=== PATIENT | female | born 1985 | race Two or more races ===

== ENCOUNTER 2017-01-15 16:31 | Emergency (ER) | payer OTHER ==
[2017-01-15] MEDS: IBUPROFEN 400 MG TABLET PO STA (17:28)
[2017-01-15] MEDS: LIDOCAINE PATCH 5% TOP STA (17:29)
[2017-01-15] MEDS ORDERED: LIDOCAINE PATCH 5% TOP ONE (17:31)
[2017-01-15] MEDS ORDERED: IBUPROFEN 400 MG TABLET PO ONE (17:31)
[2017-01-15 18:17] LABS: CREATININE 0.8 mg/dL (0.4-1.0); GFR - MDRD 83 (>89)
--- NOTE | 2017-01-15 18:31 | ED Physician Documentation ---
History of Present Illness - Stated complaint Stated Complaint: NECK PX - Chief complaint Chief Complaint: Back Pain - Additonal information Additional information: hx from pt 31 female travlled from [place] by care several weeks ago several weeeks of mild cough URI sx that started after thr trip now several days of right lateral neck and shoulder pain worse with moving arm but also worse with breathing and a little soa no specific injury recalled no leg pain or swelling denies preg non smoker Review of Systems Constitutional: denies: Fever, Chills Respiratory: reports: Dyspnea, Cough GI: denies: Abdominal Pain : denies: Now EGA Musculoskeletal: reports: Neck pain, Joint pain (R shoulder) Endocrine: denies: Easy bruising / bleeding Immunocompromised: denies: Immunocompromised PD PAST MEDICAL HISTORY - Past Medical History Past Medical History: Yes Respiratory: Asthma Endocrine/Autoimmune: Type 1 diabetes - Past Surgical History 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 - Present Medications Home Medications: Ambulatory Orders Medication Instructions Recorded Confirmed Cyclobenzaprine [Flexeril] 10 mg PO TID PRN #20 tablet 01/15/17 Escitalopram Oxalate [Lexapro] 5 mg PO DAILY 01/15/17 01/15/17 Ibuprofen [Motrin] 400 mg PO Q6H PRN #30 tablet 01/15/17 Insulin Aspart [Novolog Flexpen] See Protocol SUBQ DAILY 01/15/17 01/15/17 Insulin Glargine [Lantus Solostar] See Protocol SUBQ DAILY 01/15/17 01/15/17 Lidocaine Patch 5% [Lidoderm Patch] 1 each TOP DAILY PRN #10 patch 01/15/17 - Allergies Allergies/Adverse Reactions: Allergies Allergy/AdvReac Type Severity Reaction Status Date / Time No Known Drug Allergies Allergy Verified 01/15/17 16:39 - Social History Does the pt smoke?: No Smoking Status: Never smoker Does the pt drink ETOH?: Yes Does the pt have substance abuse?: No - Immunizations Immunizations are current?: Yes PD ED PE NORMAL - Vitals Vital signs reviewed: Yes - General General: Alert and oriented X 3 - HEENT HEENT: PERRL - Neck Neck: Supple, no meningeal sign, Other (no rash, no spinal pain, no swelling, some TTP R posterior soft tissue) - Cardiac Cardiac: RRR - Respiratory Respiratory: No respiratory distress, Clear bilaterally - Abdomen Abdomen: Soft, Non tender - Extremities Extremities: No edema, No calf tenderness / cord, Other (R shoulder s deformity , no pain with int ext rot, pain eith axt and ABD past 90, MSV intact, no rash) Results - Vitals Vitals: Vital Signs - 24 hr 01/15/17 01/15/17 16:55 17:13 Temperature 36.3 C L Heart Rate 98 Respiratory 18 Rate Blood Pressure 119/64 O2 Saturation 98 Oxygen O2 Source Room air - Labs Labs: Laboratory Tests 01/15/17 01/15/17 18:10 18:40 D-Dimer 226.7 Creatinine 0.8 Estimated GFR (MDRD) 83 L Serum HCG, Qual NEGATIVE - Rads (name of study) CXR Radiology: See rad report (no acute) PD MEDICAL DECISION MAKING - ED course ED course: could just be muscular - but no trauma - and somewhat pleuritic and pt had recent long car trip - will tx the pain but check CXR and a d dimer and perhaps CTPA if d dimer +, also got HCG and GFR if d dimer + saw pt 515, ordered labd 525, 635 ddimer still not running, alb not able to draw , so turned of to mid EMP Dr Davis will write dc instructions in hope d dimer is neg and Dr Davis need only be involved if it is + pt and family updated re plan Departure - Departure Disposition: 01 Home, Self Care Clinical Impression: Shoulder pain, right Qualifiers: Chronicity: acute Qualified Code(s): M25.511 - Pain in right shoulder Condition: Good Prescriptions: Cyclobenzaprine [Flexeril] 10 mg PO TID PRN #20 tablet PRN Reason: Spasms Ibuprofen [Motrin] 400 mg PO Q6H PRN #30 tablet PRN Reason: Pain Lidocaine Patch 5% [Lidoderm Patch] 1 each TOP DAILY PRN #10 patch PRN Reason: Pain Comments: The chest xray is fine - no pneumonia Your exam indicates the pain is likely coming from the muscles in you shoulder - it hurts for you to lift your arm up, But there was no injury that you recall. And the pain is also worse with breathing and you had a recent long road trip. So we also ordered a blood test to see if you have a blood clot in your lung The blood test is negative which means you do not a blood clot and you can go home with medications to ease your shoulder discomfort.
--- NOTE | 2017-01-15 18:33 | XRAY Preliminary Report ---
Exam: XR Chest 2 View PA/LAT IMPRESSION: No acute intrathoracic plain film abnormality. [facility] SITE ID: [id number]
--- NOTE | 2017-01-15 18:35 | XRAY Report ---
EXAM: CHEST RADIOGRAPHY EXAM DATE: 01/15/2017 05:25 PM. CLINICAL HISTORY: Cough, shoulder pain COMPARISON: None. TECHNIQUE: 2 views. FINDINGS: Lungs/Pleura: No focal opacities evident. No pleural effusion. No pneumothorax. Normal volumes. Mediastinum: Heart and mediastinal contours are unremarkable. Other: None. IMPRESSION: No acute intrathoracic plain film abnormality. [facility] Referring Provider Line: [phone] SITE ID: [id number]
[2017-01-15 19:14] VITALS: BP 116/74
== END 2017-01-15 19:14 | disposition home or self-care (01) ==
LOC: ED 16:31
DX: M25.511 Pain in right shoulder (principal); E10.9 Type 1 diabetes mellitus without complications
CPT/HCPCS: 36415; 71020; 82565; 84703; 85379; 99283

== ENCOUNTER 2017-10-17 06:27 | Emergency (ER) | payer OTHER ==
[2017-10-17] MEDS ORDERED: AMOXICILLIN 250 MG CAPSULE PO STA (07:31)
[2017-10-17] MEDS ORDERED: IBUPROFEN 800 MG TABLET PO STA (07:31)
--- NOTE | 2017-10-17 07:35 | ED Physician Documentation ---
PD HPI HEENT - Stated complaint Stated Complaint: EAR PX/CONGESTION - Chief complaint Chief Complaint: General - History obtained from History obtained from: Patient - History of Present Illness Timing - onset: How many days ago (4) Timing - duration: Days (4) Timing - details: Still present Location: Right ear Associated symptoms: Headache, Cough Similar symptoms before: Has not had sx before Recently seen: Clinic (Urgent Care in [place] 4 days ago.) - Additional information Additional information: The patient is a 32-year-old female who presents with right earache that has been getting progressively worse over the past 4 days. She also reports cough of one week's duration, and sore throat. She had fever earlier in the week, but not in the past 2 days. She was seen at an urgent care clinic in [place] 4 days ago, and was diagnosed with upper respiratory infection. Her earache has become worse during the past 2 days, prompting her visit to the emergency department this morning. She denies history of similar symptoms in the past. She and her family have been traveling by [facility] across the [facility], and returned from vacation yesterday. Review of Systems Constitutional: reports: Fever (Earlier in the week.) Eyes: denies: Irritation Ears: reports: Ear pain (Right ear.) Nose: reports: Congestion Throat: reports: Sore throat Cardiac: denies: Chest pain / pressure Respiratory: reports: Cough. 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 - Present Medications Home Medications: Ambulatory Orders Medication Instructions Recorded Confirmed Insulin Aspart [Novolog Flexpen] See Protocol SUBQ DAILY 01/15/17 01/15/17 Insulin Glargine [Lantus Solostar] See Protocol SUBQ DAILY 01/15/17 01/15/17 Amoxicillin 500 mg PO TID #30 capsule 10/17/17 Neomycin/Polymyx/Hc Otic Drops 4 drops RIGHTEAR TID #1 bottle 10/17/17 [Cortisporin Ear Susp] - Allergies Allergies/Adverse Reactions: Allergies Allergy/AdvReac Type Severity Reaction Status Date / Time No Known Drug Allergies Allergy Verified 10/17/17 06:36 - Social History Does the pt smoke?: No Smoking Status: Never smoker Does the pt drink ETOH?: Yes Does the pt have substance abuse?: No - Immunizations Immunizations are current?: Yes - POLST Patient has POLST: No PD ED PE NORMAL - Vitals Vital signs reviewed: Yes (Systolic hypertension.) - General General: Alert and oriented X 3, Well developed/nourished, Other (Overweight.) - HEENT HEENT: Atraumatic, EOMI, Pharynx benign, Other (The right external ear canal he has purulent debris, and scant blood. Tympanic membrane is erythematous and bulging, with loss of landmarks. Left tympanic membrane is clear.) - Neck Neck: Supple, no meningeal sign, No adenopathy, No JVD - Cardiac Cardiac: RRR, No murmur - Respiratory Respiratory: No respiratory distress, Clear bilaterally - Abdomen Abdomen: Soft, Non tender - Derm Derm: No rash - Neuro Neuro: Alert and oriented X 3, Normal speech Results - Vitals Vitals: Vital Signs - 24 hr 10/17/17 10/17/17 06:32 07:44 Temperature 36.6 C Heart Rate 97 107 H Respiratory 16 16 Rate Blood Pressure 143/83 H 143/97 H O2 Saturation 99 88 L Oxygen O2 Source Room air PD MEDICAL DECISION MAKING - ED course Complexity details: considered differential, d/w patient ED course: The patient's presentation is most consistent with acute right otitis media, and right otitis externa. Her presentation does not suggest meningitis, pharyngitis, peritonsillar abscess, or pneumonia. Treatment in the emergency department included administration of ibuprofen 800 mg orally and amoxicillin 500 mg orally. She is being discharged with prescriptions for amoxicillin and for Cortisporin otic suspension. I discussed with her the expected course of illness, antibiotic treatment and outpatient follow-up, as well as potentially worrisome signs or symptoms that should prompt reevaluation in the emergency department. - Sepsis Event Vital Signs: Vital Signs - 24 hr 10/17/17 10/17/17 06:32 07:44 Temperature 36.6 C Heart Rate 97 107 H Respiratory 16 16 Rate Blood Pressure 143/83 H 143/97 H O2 Saturation 99 88 L Oxygen O2 Source Room air Departure - Departure Disposition: 01 Home, Self Care Clinical Impression: Acute right otitis media Right otitis externa Qualifiers: Otitis externa type: unspecified type Chronicity: acute Qualified Code(s): H60.501 - Unspecified acute noninfective otitis externa, right ear Condition: Stable Instructions: ED Otitis Media Acute Adult, ED Otitis Externa Prescriptions: Amoxicillin 500 mg PO TID #30 capsule Neomycin/Polymyx/Hc Otic Drops [Cortisporin Ear Susp] 4 drops RIGHTEAR TID #1 bottle Comments: Take amoxicillin 3 times daily as prescribed. Instill Cortisporin eardrops in the right ear canal 3 times daily as prescribed. You can use Tylenol or ibuprofen as needed for pain. Follow up with your primary physician within 2 weeks. Call to schedule appointment. Return to the emergency department if you develop increasing pain, increasing facial swelling, or otherwise worsening symptoms. Discharge Date/Time: 10/17/17 07:45
[2017-10-17 07:44] VITALS: BP 143/97
== END 2017-10-17 07:45 | disposition home or self-care (01) ==
LOC: ED 06:27
DX: H66.91 Otitis media, unspecified, right ear (principal); H60.501 Unspecified acute noninfective otitis externa, right ear; E10.9 Type 1 diabetes mellitus without complications; Z79.4 Long term (current) use of insulin
CPT/HCPCS: 99283; A9270

== ENCOUNTER 2018-02-02 10:07 | Emergency (ER) | payer OTHER ==
[2018-02-02 10:23] VITALS: BP 147/84
--- NOTE | 2018-02-02 11:47 | XRAY Report ---
Reason: chest congestion and cough Procedure Date: 02/02/2018 Accession Number: [id number] / [id number] Procedure: XR - Chest 2 View X-Ray CPT Code: 89913 FULL RESULT: EXAM: CHEST RADIOGRAPHY EXAM DATE: 02/02/2018 11:26 AM. CLINICAL HISTORY: Chest congestion and cough. COMPARISON: 01/15/2017 TECHNIQUE: 2 views. FINDINGS: Lungs/Pleura: No focal opacities evident. No pleural effusion. No pneumothorax. Normal volumes. Mediastinum: Heart and mediastinal contours are unremarkable. Other: No acute findings compared to prior. IMPRESSION: Normal 2-view chest radiography. [facility]
--- NOTE | 2018-02-02 12:03 | ED Physician Documentation ---
PD HPI DYSPNEA - Stated complaint Stated Complaint: CONGESTED/CHEST PX - Chief complaint Chief Complaint: Resp - History obtained from History obtained from: Patient - History of Present Illness Timing - onset: Other (This is a very pleasant 32-year-old woman with underlying type 1 diabetes for 26 years and asthma who presents with 3 days of cough productive of yellow sputum and some posttussive emesis as well as shortness of breath on exertion and nasal congestion. She has had chills but no measured fevers. No possibility of .) Review of Systems Ten Systems: 10 systems reviewed and negative Constitutional: reports: Chills. 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 - Present Medications Home Medications: Ambulatory Orders Medication Instructions Recorded Confirmed Insulin Aspart [Novolog Flexpen] See Protocol SUBQ DAILY 01/15/17 01/15/17 Insulin Glargine [Lantus Solostar] See Protocol SUBQ DAILY 01/15/17 01/15/17 Amoxicillin 500 mg PO TID #30 capsule 10/17/17 Neomycin/Polymyx/Hc Otic Drops 4 drops RIGHTEAR TID #1 bottle 10/17/17 [Cortisporin Ear Susp] Azithromycin [Zithromax] 250 mg PO DAILY #6 tablet 02/02/18 Guaifenesin/Pseudoephedrne HCl 1 each PO BID PRN #20 tab.er.12h 02/02/18 [Mucinex D ER 600-60 mg Tablet] Hydrocodone Bit/Homatrop Me-Br 5 - 10 ml PO Q4HR PRN #120 ml 02/02/18 [Hydrocodone-Homatropine Syrup] - Allergies Allergies/Adverse Reactions: Allergies Allergy/AdvReac Type Severity Reaction Status Date / Time No Known Drug Allergies Allergy Verified 10/17/17 06:36 - Social History Does the pt smoke?: No Smoking Status: Never smoker Does the pt drink ETOH?: Yes Does the pt have substance abuse?: No - Immunizations Immunizations are current?: Yes - POLST Patient has POLST: No PD ED PE NORMAL - Vitals Vital signs reviewed: Yes - General General: Alert and oriented X 3, No acute distress - HEENT HEENT: PERRL, EOMI, Ears normal, Pharynx benign - Neck Neck: Supple, no meningeal sign, No bony TTP - Cardiac Cardiac: RRR, No murmur - Respiratory Respiratory: No respiratory distress, Other (Mildly diminished and rhonchorous at the bases without focal findings.) - Abdomen Abdomen: Non tender - Derm Derm: No rash - Extremities Extremities: No edema, No calf tenderness / cord - Neuro Neuro: Alert and oriented X 3, Normal speech Results - Vitals Vitals: Vital Signs - 24 hr 02/02/18 10:21 Temperature 36.0 C L Heart Rate 99 Respiratory 18 Rate Blood Pressure 147/84 H O2 Saturation 100 Oxygen O2 Source Room air - Rads (name of study) 2v chest Radiology: EMP read contemporaneously (normal) PD MEDICAL DECISION MAKING - ED course ED course: Given underlying comorbidities I did a err on the side of antibiotics for this bronchitic type illness. Departure - Departure Disposition: 01 Home, Self Care Clinical Impression: Bronchitis Condition: Good Record reviewed to determine appropriate education?: Yes Instructions: ED Bronchitis Asthmatic Prescriptions: Hydrocodone Bit/Homatrop Me-Br [Hydrocodone-Homatropine Syrup] 5 - 10 ml PO Q4HR PRN #120 ml PRN Reason: Cough Azithromycin [Zithromax] 250 mg PO DAILY #6 tablet Guaifenesin/Pseudoephedrne HCl [Mucinex D ER 600-60 mg Tablet] 1 each PO BID PRN #20 tab.er.12h PRN Reason: congestion Comments: Call your doctor to arrange a follow-up appointment, make the next available appointment. In the interim, return anytime if worse or if new symptoms develop. Your blood pressure was elevated today on check into the emergency department. This does not mean that you have hypertension, it is a common phenomenon to come to the emergency department and have elevated blood pressure. I recommend that you see your primary care physician within the week to have it rechecked when you are feeling better.
== END 2018-02-02 12:07 | disposition home or self-care (01) ==
LOC: ED 10:07
DX: J40 Bronchitis, not specified as acute or chronic (principal); R03.0 Elevated blood-pressure reading, without diagnosis of hypertension; E10.9 Type 1 diabetes mellitus without complications
CPT/HCPCS: 71046; 93005; 99282; 99283

== ENCOUNTER 2018-02-05 03:06 | Emergency (ER) | payer OTHER ==
--- NOTE | 2018-02-05 03:20 | ED Physician Documentation ---
PD HPI CHEST PAIN - Stated complaint Stated Complaint: CHEST PX - Chief complaint Chief Complaint: Cardiac - History obtained from History obtained from: Patient - History of Present Illness Timing - onset: Enter time (0), Last night Timing - onset during: Rest Timing - duration: Hours Timing - details: Gradual onset, Still present Quality: Pressure, Sharp Location: Left chest Improved by: Rest Worsened by: Exertion, Inspiration, Palpation Associated symptoms: Shortness of air Similar symptoms before: Has not had sx before Recently seen: Emergency Dept - Additional information Additional information: 32-year-old female with history of type 1 diabetes has developed asthmatic bronchitis she has been sick for about 1 week with cough productive of sputum. She was in the emergency department 3 days [address] Patton and placed on some azithromycin and cough suppressant. She states the cough is somewhat better she continues to have some shortness of breath and is using her inhaler 3-4 times per day. She ended up with chest pain developing about 1030 last night and this is become more more severe as time is come on she is come to the emergency department early this morning with left-sided chest pain. She has not had diaphoresis with this she does have shortness of breath. She states that her asthma is usually well controlled and she does not need to use her inhaler when she has not ill. She states she has had problems previously with middle ear infection and with asthma. It has been more than 2 years since she had a last course of prednisone. Review of Systems Constitutional: denies: Fever Eyes: denies: Decreased vision Ears: denies: Ear pain Nose: reports: Rhinorrhea / runny nose, Congestion Throat: denies: Sore throat Cardiac: reports: Chest pain / pressure. 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 - Present Medications Home Medications: Ambulatory Orders Medication Instructions Recorded Confirmed Insulin Aspart [Novolog Flexpen] See Protocol SUBQ DAILY 01/15/17 01/15/17 Insulin Glargine [Lantus Solostar] See Protocol SUBQ DAILY 01/15/17 01/15/17 Amoxicillin 500 mg PO TID #30 capsule 10/17/17 Neomycin/Polymyx/Hc Otic Drops 4 drops RIGHTEAR TID #1 bottle 10/17/17 [Cortisporin Ear Susp] Azithromycin [Zithromax] 250 mg PO DAILY #6 tablet 02/02/18 Guaifenesin/Pseudoephedrne HCl 1 each PO BID PRN #20 tab.er.12h 02/02/18 [Mucinex D ER 600-60 mg Tablet] Hydrocodone Bit/Homatrop Me-Br 5 - 10 ml PO Q4HR PRN #120 ml 02/02/18 [Hydrocodone-Homatropine Syrup] predniSONE [Deltasone] 40 mg PO DAILY 5 Days #10 tablet 02/05/18 - Allergies Allergies/Adverse Reactions: Allergies Allergy/AdvReac Type Severity Reaction Status Date / Time No Known Drug Allergies Allergy Verified 02/05/18 03:15 - Social History Does the pt smoke?: No Smoking Status: Never smoker Does the pt drink ETOH?: No Does the pt have substance abuse?: No - Immunizations Immunizations are current?: Yes - POLST Patient has POLST: No PD ED PE NORMAL - Vitals Vital signs reviewed: Yes (hypertensive) - General General: Alert and oriented X 3, Well developed/nourished, Other (teary eyed ) - HEENT HEENT: Atraumatic, PERRL, EOMI, Ears normal, Moist mucous membranes - Neck Neck: Supple, no meningeal sign, No bony TTP - Cardiac Cardiac: RRR, No murmur - Respiratory Respiratory: No respiratory distress, Other (diminished breath sounds ) - Abdomen Abdomen: Soft, Non tender - Back Back: No CVA TTP, No spinal TTP - Derm Derm: Normal color, Warm and dry, No rash - Extremities Extremities: No deformity, No edema - Neuro Neuro: Alert and oriented X 3, supervisor coil springs 2-12 intact, No motor deficit, No sensory deficit, Normal speech Eye Opening: Spontaneous Motor: Obeys Commands Verbal: Oriented GCS Score: 15 - Psych Psych: Normal mood, Normal affect Results - Vitals Vitals: Vital Signs - 24 hr 10/02/05/18 02/05/18 03:10 03:34 04:00 Temperature 37 C Heart Rate 94 83 106 H Respiratory 20 13 21 Rate Blood Pressure 163/92 H 133/79 H O2 Saturation 100 99 Oxygen O2 Source Room air - EKG (time done) 0314 Rate: Rate (enter#) (106) Rhythm: Sinus tachycardia Compare to prior EKG: Changed from prior EKG, Other (SPT 02-02-18 rate has increased) Computer interpretation: Agree with computer - Labs Labs: Laboratory Tests 02/05/18 02/05/18 02/05/18 04:04 04:04 04:04 WBC 10.5 RBC 4.74 Hgb 12.1 Hct 35.6 L MCV 75.1 L MCH 25.5 L MCHC 33.9 RDW 16.3 H Plt Count 388 MPV 7.7 L Neut # (Auto) 5.2 Lymph # (Auto) 4.7 H [place] # (Auto) 0.5 Eos # (Auto) 0.1 Baso # (Auto) 0.1 Absolute Nucleated RBC 0.01 Nucleated RBC % 0.1 Sodium 134 L Potassium 3.2 L Chloride 100 L Carbon Dioxide 25 Anion Gap 9.0 BUN 14 Creatinine 0.8 Estimated GFR (MDRD) 82 L Glucose 252 H Calcium 8.7 Total Bilirubin 0.3 AST 14 ALT 11 Alkaline Phosphatase 92 Troponin I < 0.04 Total Protein 7.1 Albumin 3.5 Globulin 3.6 Albumin/Globulin Ratio 1.0 Lipase 17 L - Rads (name of study) 2 veiw chest Radiology: Prelim report reviewed (Impression: 1. No acute abnormality seen in the chest.), EMP read indepedently, See rad report PD MEDICAL DECISION MAKING - ED course Complexity details: reviewed old records, reviewed results, re-evaluated patient, considered differential, d/w patient, d/w family ED course: Type I diabetic with asthmatic bronchitis has developed chest pain in the left anterior chest with chest wall tenderness and I suspect this is all related to chest wall fatigue secondary to her illness. On arrival to the emergency department an IV is placed she is administered 30 mg of Toradol intravenously and 10 mg of dexamethasone. The patient does have sliding scale insulin. She is also administered a DuoNeb treatment. Electric cardiogram is unremarkable, trop is negative and the patient has improvement with treatment. I discussed with the patient a course of prednisone for this illness and the likely repercussions for her diabetes. We will simplify her course to give her 40 mg daily for 5 days to start tomorrow. Departure - Departure Disposition: 01 Home, Self Care Clinical Impression: Asthmatic bronchitis Qualifiers: Asthma severity: mild Asthma persistence: intermittent Asthma complication type: with acute exacerbation Qualified Code(s): J45.21 - Mild intermittent asthma with (acute) exacerbation Condition: Stable Instructions: ED Bronchitis Asthmatic Follow-Up: Alok Woods MD [Primary Care Provider] - Prescriptions: predniSONE [Deltasone] 40 mg PO DAILY 5 Days #10 tablet Forms: Activity restrictions
[2018-02-05] MEDS ORDERED: DEXAMETHASONE 10 MG/ML VIAL IV STA (03:25)
[2018-02-05] MEDS ORDERED: KETOROLAC 60 MG/2 ML VIAL IVP STA (03:25)
[2018-02-05] MEDS ORDERED: IPRATROPIUM/ALBUTEROL 3 ML NEB INH STA (03:25)
--- NOTE | 2018-02-05 04:05 | XRAY Report ---
Reason: diminished breath sounds and left chest pain Procedure Date: 02/05/2018 Accession Number: [id number] / [id number] Procedure: XR - Chest 2 View X-Ray CPT Code: 03699 FULL RESULT: EXAM: CHEST RADIOGRAPHY EXAM DATE: 02/05/2018 04:00 AM. CLINICAL HISTORY: Diminished breath sounds and left chest pain. COMPARISON: CHEST 2 VIEW 02/02/2018 11:18 AM. TECHNIQUE: 2 views. FINDINGS: Lungs/Pleura: No alveolar consolidation or pleural effusion seen. No pneumothorax. Mediastinum: Heart and mediastinal contours are unremarkable. Other: None. IMPRESSION: 1. No acute abnormality seen in the chest. [facility]
[2018-02-05 04:15] LABS: BASOPHILS # (AUTO) 0.1 10^3/uL (0.0-0.1); BASOPHILS % (AUTO) 0.9 %; EOSINOPHILS # (AUTO) 0.1 10^3/uL (0.0-0.7); EOSINOPHILS % (AUTO) 1.1 %; HGB - HEMOGLOBIN 12.1 g/dL (12.0-16.0); LYMPHOCYTES # (AUTO) 4.7 10^3/uL (1.5-3.5); LYMPHOCYTES % (AUTO) 44.2 %; MEAN CORPUSCULAR HEMOGLOBIN 25.5 pg (27.0-31.0); MEAN CORPUSCULAR HGB CONC 33.9 g/dL (32.0-36.0); MEAN CORPUSCULAR VOLUME 75.1 fL (81.0-99.0); MEAN PLATELET VOLUME 7.7 fL (7.9-10.8); MONOCYTES # (AUTO) 0.5 10^3/uL (0.0-1.0); MONOCYTES % (AUTO) 4.8 %; NEUTROPHILS # (AUTO) 5.2 10^3/uL (1.5-6.6); PLT - PLATELET COUNT 388 10^3/uL (130-450); RED BLOOD COUNT 4.74 10^6/uL (4.20-5.40); RED CELL DISTRIBUTION WIDTH 16.3 % (12.0-15.0); WHITE BLOOD COUNT 10.5 x10^3/uL (4.8-10.8)
[2018-02-05 04:21] LABS: ALBUMIN 3.5 g/dL (3.2-5.5); BILIRUBIN,TOTAL 0.3 mg/dL (0.2-1.0); CALCIUM 8.7 mg/dL (8.5-10.3); CREATININE 0.8 mg/dL (0.4-1.0); TOTAL PROTEIN 7.1 g/dL (6.7-8.2)
[2018-02-05] MEDS ORDERED: POTASSIUM BICARB 25 MEQ TABLET PO STA (04:58)
[2018-02-05 05:03] VITALS: BP 123/70
== END 2018-02-05 05:13 | disposition home or self-care (01) ==
LOC: ED 03:06
DX: J45.21 Mild intermittent asthma with (acute) exacerbation (principal); E10.9 Type 1 diabetes mellitus without complications; Z79.4 Long term (current) use of insulin
CPT/HCPCS: 36415; 71046; 80053; 83690; 84484; 85025; 93005; 94640; 96374; 99283; 99284; A9270; 94664

== ENCOUNTER 2018-04-04 11:34 | Emergency (ER) | payer OTHER ==
[2018-04-04 11:51] VITALS: BP 138/96
--- NOTE | 2018-04-04 12:11 | ED Physician Documentation ---
PD HPI URI - Stated complaint Stated Complaint: ASTHMATIC DIFFICULTY BREATHING/CONGESTION - Chief complaint Chief Complaint: Resp - History obtained from History obtained from: Patient - History of Present Illness Timing - onset: Other (This is a 32-year-old woman with history of underlying asthma and type 1 diabetes has been sick for about 3 months with on and off productive cough and increased wheezing as well as nasal congestion and sinus pressure without fevers. She did travel to [place] prior to this starting but had a chest x-ray since then that was normal. 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 SOFTWARE ARCHITECT: None : None HEENT: None Psych: None Musculoskeletal: None Derm: None - Past Surgical History Past Surgical History: Yes /COMPUTER SYSTEMS SOFTWARE ARCHITECT: section - Present Medications Home Medications: Ambulatory Orders Medication Instructions Recorded Confirmed Insulin Aspart [Novolog Flexpen] See Protocol SUBQ DAILY 01/15/17 01/15/17 Insulin Glargine [Lantus Solostar] See Protocol SUBQ DAILY 01/15/17 01/15/17 Guaifenesin/Pseudoephedrne HCl 1 each PO BID PRN #20 tab.er.12h 02/02/18 [Mucinex D ER 600-60 mg Tablet] Albuterol Sulf [Ventolin Hfa 1 04/04/18 Inhaler] Azithromycin [Zithromax] 1 tab PO DAILY #6 tablet 04/04/18 Hydrocodone/Chlorphen P-Stirex 5 ml PO BID PRN #90 ml 04/04/18 [Hydrocodone-Chlorphen ER Susp] - Allergies Allergies/Adverse Reactions: Allergies Allergy/AdvReac Type Severity Reaction Status Date / Time No Known Drug Allergies Allergy Verified 04/04/18 11:39 - Social History Does the pt smoke?: No Smoking Status: Never smoker Does the pt drink ETOH?: Yes ETOH Use: Wine Does the pt have substance abuse?: No - Immunizations Immunizations are current?: Yes - POLST Patient has POLST: No PD ED PE NORMAL - Vitals Vital signs reviewed: Yes - General General: Alert and oriented X 3, No acute distress - HEENT HEENT: PERRL, Pharynx benign - Neck Neck: Supple, no meningeal sign, No bony TTP - Cardiac Cardiac: RRR, No murmur - Respiratory Respiratory: No respiratory distress, Other (Mild expiratory wheezes but nonlabored with excellent air motion) - Abdomen Abdomen: Non tender - Neuro Neuro: Alert and oriented X 3, Normal speech Results - Vitals Vitals: Vital Signs - 24 hr 04/04/18 11:37 Temperature 36.1 C L Heart Rate 112 H Respiratory 18 Rate Blood Pressure 138/96 H O2 Saturation 97 Oxygen O2 Source Room air PD MEDICAL DECISION MAKING - ED course ED course: This is a 32-year-old woman with type 1 diabetes and asthma who presents with several months worth of cough and congestion as well as symptoms of sinusitis. Given the time course and underlying type 1 diabetes I think antibiotics are in order. We discussed repeating prednisone, she was on prednisone a couple of months ago for the same illness. She did not feel like it helped much, and it did affect her blood sugars significantly. Departure - Departure Disposition: 01 Home, Self Care Clinical Impression: Asthmatic bronchitis Qualifiers: Asthma severity: mild Asthma persistence: intermittent Asthma complication type: with acute exacerbation Qualified Code(s): J45.21 - Mild intermittent asthma with (acute) exacerbation DM type 1 (diabetes mellitus, type 1) Qualifiers: Diabetes mellitus complication status: without complication Qualified Code(s): E10.9 - Type 1 diabetes mellitus without complications Condition: Good Record reviewed to determine appropriate education?: Yes Instructions: ED Bronchitis Asthmatic Prescriptions: Azithromycin [Zithromax] 1 tab PO DAILY #6 tablet Hydrocodone/Chlorphen P-Stirex [Hydrocodone-Chlorphen ER Susp] 5 ml PO BID PRN #90 ml PRN Reason: Cough Comments: Call your doctor to arrange a follow-up appointment, make the next available appointment. In the interim, return anytime if worse or if new symptoms develop. Your blood pressure was elevated today on check into the emergency department. This does not mean that you have hypertension, it is a common phenomenon to come to the emergency department and have elevated blood pressure. I recommend that you see your primary care physician within the week to have it rechecked when you are feeling better.
== END 2018-04-04 12:15 | disposition home or self-care (01) ==
LOC: ED 11:34
DX: J45.21 Mild intermittent asthma with (acute) exacerbation (principal); E10.9 Type 1 diabetes mellitus without complications; Z79.4 Long term (current) use of insulin; R03.0 Elevated blood-pressure reading, without diagnosis of hypertension
CPT/HCPCS: 99283

== ENCOUNTER 2018-06-06 10:44 | Emergency (ER) | payer OTHER ==
[2018-06-06 10:51] VITALS: BP 146/85
--- NOTE | 2018-06-06 12:18 | ED Physician Documentation ---
History of Present Illness - Stated complaint Stated Complaint: HAND PX - Chief complaint Chief Complaint: Ext Problem - History obtained from History obtained from: Patient - History of Present Illness Timing: Other (2 months) Pain level max: 6 Pain level now: 4 - Additonal information Additional information: 33-year-old female presents to the emergency department with a right thumb pain for the past several months. Occasionally feels like it catches and she is unable to straighten the thumb. 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 Nothing makes it better or worse. Saw her primary care provider who put her on a topical steroid but this is not improving. Review of Systems Constitutional: denies: Fever, Chills GI: denies: Nausea, Vomiting, Diarrhea : denies: Now [facility] PD PAST MEDICAL HISTORY - Past Medical History Past Medical History: Yes Cardiovascular: None Respiratory: Asthma Neuro: None Endocrine/Autoimmune: Type 1 diabetes GI: None TOW BOAT CAPTAIN: None : None HEENT: None Psych: None Musculoskeletal: None Derm: None - Past Surgical History Past Surgical History: Yes /TOW BOAT CAPTAIN: section - Present Medications Home Medications: Ambulatory Orders Medication Instructions Recorded Confirmed Insulin Aspart [Novolog Flexpen] See Protocol SUBQ DAILY 01/15/17 01/15/17 Insulin Glargine [Lantus Solostar] See Protocol SUBQ DAILY 01/15/17 01/15/17 Guaifenesin/Pseudoephedrne HCl 1 each PO BID PRN #20 tab.er.12h 02/02/18 [Mucinex D ER 600-60 mg Tablet] Albuterol Sulf [Ventolin Hfa 1 04/04/18 Inhaler] Azithromycin [Zithromax] 1 tab PO DAILY #6 tablet 04/04/18 Hydrocodone/Chlorphen P-Stirex 5 ml PO BID PRN #90 ml 04/04/18 [Hydrocodone-Chlorphen ER Susp] - Allergies Allergies/Adverse Reactions: Allergies Allergy/AdvReac Type Severity Reaction Status Date / Time No Known Drug Allergies Allergy Verified 04/04/18 11:39 - Social History Does the pt smoke?: No Smoking Status: Never smoker Does the pt drink ETOH?: No Does the pt have substance abuse?: No - Immunizations Immunizations are current?: Yes - POLST Patient has POLST: No PD ED PE NORMAL - Vitals Vital signs reviewed: Yes - General General: Alert and oriented X 3, No acute distress - HEENT HEENT: Moist mucous membranes - Neck Neck: Supple, no meningeal sign - Extremities Extremities: Other (Right thumb, no swelling, no redness. There is with walking as she flexes and extends her thumb. Neurovascular intact) - Neuro Neuro: Alert and oriented X 3 Results - Vitals Vitals: Vital Signs - 24 hr 06/06/18 10:49 Temperature 36.9 C Heart Rate 95 Respiratory 18 Rate Blood Pressure 146/85 H O2 Saturation 99 Oxygen O2 Source Room air PD MEDICAL DECISION MAKING - ED course Complexity details: considered differential, d/w patient ED course: Right thumb trigger finger. Will place him in a thumb spica and have her follow-up with her doctor. She is well-appearing, nontoxic. Afebrile. No evidence of cellulitis or infection. No evidence of septic joint. Patient counseled regarding signs and symptoms for which I believe and urgent re- evaluation would be necessary. Patient with good understanding of and agreement to plan and is comfortable going home at this time This document was made in part using voice recognition software. While efforts are made to proofread this document, sound alike and grammatical errors may occur. Departure - Departure Disposition: 01 Home, Self Care Clinical Impression: Trigger thumb of right hand Condition: Good Instructions: Trigger Finger, Trigger Finger Tx Follow-Up: [facility] [Provider Group] - Within 1 week Comments: Wear the splint until released by orthopedics. Follow-up with your doctor for further care. Orthopedics may want to perform cortisone injections into your thumb. You can use Motrin or Tylenol as needed for pain. Return if you worsen
== END 2018-06-06 12:39 | disposition home or self-care (01) ==
LOC: ED 10:44
DX: M65.311 Trigger thumb, right thumb (principal); E10.9 Type 1 diabetes mellitus without complications
CPT/HCPCS: 29125; 99282

== ENCOUNTER 2018-07-21 05:52 | Day surgery (SDC) | payer OTHER ==
[2018-07-21] MEDS ORDERED: LACTATED RINGERS 1,000 ML IV ONE (06:51)
[2018-07-21 07:00] LABS: HCG UR QUAL NEGATIVE
--- NOTE | 2018-07-21 07:12 | ANESTHESIA ---
Pre-Anesthesia VS, & Labs - Diagnosis right trigger thumb - Procedure right thumb trigger release Vital Signs: Temp Pulse Resp BP Pulse Ox 36.6 C 104 H 16 125/86 H 98 07/21/18 06:32 07/21/18 06:32 07/21/18 06:32 07/21/18 06:32 07/21/18 06:32 Height 5 ft 1 in Weight (kg) 87.2 kg Body Mass Index 34.4 - NPO >8 hours - Is Patient ?: No - Lab Results Current Lab Results: Laboratory Tests 07/21/18 06:50: POC Whole Bld Glucose 493 H Lab results reviewed: Yes Home Medications and Allergies Home Medications: Ambulatory Orders Fluticasone 44 Mcg [Flovent] 2 puffs INH BID 07/15/18 Loratadine [Claritin] 5 mg PO DAILY 07/15/18 Insulin Aspart [Novolog Flexpen] See Protocol SUBQ DAILY 01/15/17 Insulin Glargine [Lantus Solostar] 50 units SUBQ QPM 01/15/17 Albuterol Sulf [Ventolin Hfa Inhaler] 2 puffs IH Q4H PRN 04/04/18 Fluticasone 44 Mcg [Flovent] 2 puffs INH BID 07/15/18 Loratadine [Claritin] 5 mg PO DAILY 07/15/18 Allergies/Adverse Reactions: Allergies Allergy/AdvReac Type Severity Reaction Status Date / Time No Known Drug Allergies Allergy Verified 07/20/18 13:38 Anes History & Medical History - Anesthetic History Family history of Anesthesia Complications: Denies Family history of Malignant Hyperthermia: Denies - Medical History Cardiovascular: reports: None Pulmonary: reports: Asthma (controlled on inhalors) Gastrointestinal: reports: GERD (controlled with OTC) Urinary: reports: None Neuro: reports: None Musculoskeletal: reports: None Endocrine/Autoimmune: reports: Type 1 diabetes (for 30 years) Blood Disorders: reports: None Skin: reports: None Smoking Status: Never smoker Psychosocial: reports: Anxiety - Surgical History Gynecologic: section Exam General: Alert, Oriented x3, Cooperative, No acute distress Dental: WNL Mouth Openin Fingerbreadth Neck Mobility: Normal Mallampati classification: I Thyromental Distance: 4-6 cm Respiratory: Lungs clear, Normal breath sounds, No respiratory distress, No accessory muscle use Cardiovascular: Regular rate (tachycardic), Normal S1, Normal S2, No murmurs Mental/Cognitive Status: Alert/Oriented X3, Normal for patient Plan Anesthesia Type: General (treated with preop insulin for elevated blood glucose. Will monitor intraop and treat accordingly) Consent for Procedure(s) Verified and Reviewed: Yes Code Status: Attempt Resuscitation ASA classification: 2-Mild systemic disease Is this case an emergency?: No
[2018-07-21] MEDS ORDERED: BUPIVACAINE 0.25%-EPI 1:200000 PF 30 ML VIAL ONE (07:13)
[2018-07-21] MEDS ORDERED: INSULIN REGULAR HUMAN 100 UNIT/1 ML 10 ML MDV ONE ×2 (07:15→08:10)
[2018-07-21] MEDS ORDERED: BUPIVACAINE 0.25% PF 10 ML VIAL ONE (07:22)
[2018-07-21] MEDS ORDERED: BUPIVACAINE 0.25%-EPI 1:200000 PF 30 ML VIAL SUBQ ONE ×2 (07:44)
[2018-07-21] MEDS ORDERED: MIDAZOLAM 2 MG/2 ML VIAL IVP ONE (07:59)
[2018-07-21] MEDS ORDERED: PROPOFOL 200 MG/20 ML VIAL IVP ONE (07:59)
[2018-07-21] MEDS ORDERED: fentaNYL 100 MCG/2 ML VIAL IVP ONE (07:59)
[2018-07-21] MEDS ORDERED: INSULIN REGULAR HUMAN 100 UNIT/1 ML 10 ML MDV SUBQ ONE (08:06)
[2018-07-21] MEDS ORDERED: ONDANSETRON 4 MG/2 ML VIAL IVP PRN (08:17)
[2018-07-21] MEDS ORDERED: HYDROcod/ACETAM 5/325 MG TABLET PO PRN (08:17)
[2018-07-21 09:00] VITALS: BP 118/72
--- NOTE | 2018-07-21 12:22 | OPERATIVE REPORT ---
DATE OF SERVICE: 07/21/2018 Physician: Matias Mathur MD PREOPERATIVE DIAGNOSIS: Right trigger thumb. POSTOPERATIVE DIAGNOSIS: Right trigger thumb. PROCEDURE PERFORMED: Right trigger thumb release. OPERATING SURGEON: Matias Mathur MD ANESTHESIA: Local MAC, Mary Kay Slater CRNA INDICATIONS FOR SURGERY: Patient is a 33-year-old female with progressive triggering of her right th umb, who has not responded to conservative measures and desires trigger release. She is diabetic. DESCRIPTION OF OPERATIVE PROCEDURE: The patient was taken to the operating room and was given a MAC anesthetic, after which her thumb was blocked at its proximal flexion crease with 1% lidocaine and 0. 25% Marcaine with epinephrine, approximately 3-4 mL. Once this block was in place, a transverse inci cindi was made in the proximal thumb crease, allowing exposure was subcutaneous dissection down to the flexor sheath, which was opened longitudinally, dividing the A1 rolando of that sheath, and the tendo n showing no abnormality, but the sheath very tight. Once this was released, there was no apparent t riggering. The wound was flushed. Closure was with interrupted 3-0 nylon and a sterile dressing karthik lied. The patient was taken to the recovery room in stable condition. ESTIMATED BLOOD LOSS: Minimal. COMPLICATIONS: None. SPONGE AND NEEDLE COUNTS: Correct. TD: 07/21/2018 11:01
== END 2018-07-21 05:53 | disposition home or self-care (01) ==
LOC: SDS 05:52
PROVIDERS: ATTEND Orthopaedic Surgery
PROC: 0LN70ZZ Release Right Hand Tendon, Open Approach (ICD-10-PCS; principal; 2018-07-21 07:30)
DX: M65.311 Trigger thumb, right thumb (principal); J45.909 Unspecified asthma, uncomplicated; D64.9 Anemia, unspecified; E10.9 Type 1 diabetes mellitus without complications; K21.9 Gastro-esophageal reflux disease without esophagitis
CPT/HCPCS: 26055; 81025; J7120